=== PATIENT | male | born 1955 | race Caucasian/White ===

== ENCOUNTER 2016-08-08 09:54 | Day surgery (SDC) | payer MEDICARE ==
[~2016-08-08 09:54] MED LIST: CEFAZOLIN SODIUM 2 GRAM PREMIX 100 ML IV ONE; IV START KIT ONE; LACTATED RINGERS 0 ML ONE; SODIUM CHLORIDE 0.9% 1,000 ML ONE
[2016-08-08] MEDS ORDERED: CEFAZOLIN SODIUM 2 GRAM DUPLEX 50 ML IV PRN (10:00)
[2016-08-08] MEDS ORDERED: METOCLOPRAMIDE HCL 5 MG/ML 2ML VIAL ONE (12:01)
[2016-08-08] MEDS ORDERED: FENTANYL 100 MCG/2 ML VIAL ONE (12:01)
[2016-08-08] MEDS ORDERED: LIDOCAINE 2% (MULTI DOSE) 10 ML VIAL ONE (12:01)
[2016-08-08] MEDS ORDERED: PROPOFOL 40 ML IV ONE (12:01)
[2016-08-08] MEDS ORDERED: MIDAZOLAM HCL 1 MG/ML 2ML VIAL ONE (12:01)
[2016-08-08] MEDS ORDERED: DEXAMETHASONE SOD PHOS 4 MG/1 ML VIAL ONE (12:01)
[2016-08-08] MEDS ORDERED: BACITRACIN 1 APPLIC/500 UNIT PACKET TP ONE (12:25)
[2016-08-08] MEDS ORDERED: BUPIVACAINE 0.5% (PRES FREE) 30 ML VIAL ONE (12:25)
[2016-08-08] MEDS ORDERED: LIDOCAINE 4% (PRES FREE) 5 ML AMP ONE (12:40)
[2016-08-08] MEDS ORDERED: SPINAL PROCEDURAL TRAY 1 EACH ONE (12:40)
[2016-08-08] MEDS ORDERED: HYDROMORPHONE HCL 1 MG/ML SYRINGE IV PRN (14:16)
[2016-08-08] MEDS ORDERED: ONDANSETRON 4 MG/2ML 2 ML VIAL IV PRN ×2 (14:16→14:51)
[2016-08-08] MEDS ORDERED: ATROPINE SULFATE 0.4 MG/1 ML VIAL IV PRN (14:16)
[2016-08-08] MEDS ORDERED: NALOXONE HCL 0.4 MG/ML VIAL IV PRN (14:16)
[2016-08-08] MEDS ORDERED: PROMETHAZINE HCL 25 MG/ML VIAL IM PRN (14:16)
[2016-08-08] MEDS: FENTANYL 100 MCG/2 ML VIAL IV PRN ×2 (14:23→14:39)
[2016-08-08] MEDS ORDERED: SODIUM CHLORIDE 0.9% 1,000 ML IV SCH (14:30)
[2016-08-08] MEDS ORDERED: HYDROCODONE/ACETAMINOPHEN 5/325MG TABLET PO PRN (14:51)
[2016-08-08] MEDS ORDERED: MORPHINE SULFATE 2 MG/ML SYRINGE IV PRN (14:51)
[2016-08-08] MEDS ORDERED: KETOROLAC TROMETHAMINE 30 MG/ML 1 ML VIAL ONE (15:09)
[2016-08-08] MEDS ORDERED: KETOROLAC TROMETHAMINE 30 MG/ML 1 ML VIAL IV ONE (15:11)
[2016-08-08] MEDS ORDERED: ONDANSETRON 4 MG/2ML 2 ML VIAL ONE (15:30)
--- NOTE | 2016-08-08 19:35 | OP ---
PARADISE OG [id number] DATE OF OPERATION: August 08, 2016 SURGEON: Flako Heller M.D. TAPE WEAVER: Valentin Frederick ANESTHEISA: Spinal. PREOPERATIVE DIAGNOSIS: Symptomatic right hydrocele. POSTOPERATIVE DIAGNOSIS: Symptomatic right hydrocele. PROCEDURE: RIGHT HYDROCELE REPAIR. SPECIMENS: Fragments of right hydrocele sac. INDICATIONS: The patient is a 61-year-old man with a two year history of increasing right intrascrotal expansion causing positional discomfort and with an onset following his right inguinal surgery. He also has a history of mixed lower urinary tract symptoms and is on an alpha higinio. FINDINGS: A large tense right hydrocele without focal lesions inside of the tunica vaginalis. Clear yellow fluid. PROCEDURE: The patient was identified and brought to the operating room where spinal anesthetic was applied and he was left supine on the table. The genital region was shaved, prepared, and draped sterilely. We marked the midline raphe and treated it with 0.5% Marcaine in the midline. We then opened a vertical incision approximately 5 to 6 cm and dissected through the dartos down to the level of the hydrocele on the right. We then spent a prolonged period of time progressively dissecting connective tissue away from the hydrocele sac until we could deliver the entire right intrascrotal contents into the wound. We completed the peripheral dissection around the hydrocele sac. Next, we opened the sac anteriorly in the midline and drained the fluid. We then extended the line of incision superiorly to the apex and then down almost to the gubernacular region. On both sides, excess tissue was excised with cautery. We then everted the remaining portion of the hydrocele sac and sutured them behind the cord structures with a running #4-0 PDS suture. With that complete, we made a stab incision in the right lower aspect of the hemiscrotum and passed a 1/4 inch Luc drain and secured it at the level of the skin with #2-0 nylon. This was left posterior to the testicle which was returned to a normal position to the right hemiscrotum and secured inferiorly and laterally with #2-0 silk sutures. Finally, the wound was irrigated with genitourinary irrigant, and we closed the dartos layer with a running #3-0 Vicryl suture followed by interrupted vertical mattress sutures of #4-0 Chromic in the skin. Antibiotic ointment was applied underneath Xeroform gauze and a snug fluff dressing with scrotal support. Estimated blood loss less than 20 mL. Sponge and needle counts were correct. No early complications. Patient tolerated the procedure well and was taken in stable condition to the post anesthesia room. cc: Flako Heller M.D. Flako Leonard M.D.
--- NOTE | 2016-08-10 09:07 | SURGPATH ---
[facility] [address] [place] [id number] Patient Name: PARADISE OG MR#: [id number] : 1955 Gender: M Specimen #: [id number] Collected: 08/08/2016 Received: 08/09/2016 Reported: 08/10/2016 Submitting Phys: DARREN YUSUF Copy To Phys: [facility] Clinical History / Pre-Operative Diagnosis: Right hydrocele Specimen Source / Surgical Procedure Performed: Right hydrocele sac Interpretation: RIGHT HYDROCELE SAC, EXCISION: - CONSISTENT WITH HYDROCELE SAC Electronically Signed Out Clifford Turpin M.D. Gross Description: The specimen is received in formalin labeled with the patient's name and "portion of right hydrocele sac". The specimen consists of a 6.0 x 6.0 x 0.5 cm aggregate of waggoner-purple rubbery fibromembranous tissue. [employer] Consultant submitted in one cassette. NEMO Ramirez Microscopic Description: Microscopic performed. 1: 41432 N43.0
== END 2016-08-08 20:17 | disposition home or self-care (01) ==
LOC: SDC 09:54
PROVIDERS: ATTEND Urology
PROC: 0VB60ZZ Excision of Right Tunica Vaginalis, Open Approach (ICD-10-PCS; principal; 2016-08-08)
DX: N43.2 Other hydrocele (principal); N39.46 Mixed incontinence; E11.9 Type 2 diabetes mellitus without complications; E66.9 Obesity, unspecified; Z68.41 Body mass index [BMI] 40.0-44.9, adult; E78.5 Hyperlipidemia, unspecified; I10 Essential (primary) hypertension; I50.9 Heart failure, unspecified; K21.9 Gastro-esophageal reflux disease without esophagitis; J98.9 Respiratory disorder, unspecified; Z87.891 Personal history of nicotine dependence
CPT/HCPCS: 55040; J3010 ×2; J1885; J2250; J2405; J7030; A9270; J2001; J0690